=== PATIENT | female | born 1980 | race Caucasian/White ===

== ENCOUNTER 2016-08-08 02:05 | Emergency (ER) | payer MEDICAID ==
--- NOTE | 2016-08-08 19:18 | ER ---
ADMIT: 08/08/2016 RM/LOC: ER [facility] MR#: [id number] [place], [place] [id number] BESTDMITRY HOYTRA Natalia [address] [place] [address] Emergency Room Report SEX: F AGE: 36 : 1980 DATE: 08/08/2016 HISTORY OF PRESENT ILLNESS: The patient is a 36-year-old female, came to the ER with chief complaint of vaginal pain on and off for the last 3 months and also hematuria for the last few days. The patient states she also has been treated for vaginal infection and noticed some improvement. The patient has no primary care doctor. Pain is sharp and is in the pubic area and vaginal area per the patient. PHYSICAL EXAMINATION: GENERAL: The patient was in moderate distress. HEAD AND NECK: Noncontributory. CHEST: Clear bilaterally in auscultation. HEART: Normal S1, S2. ABDOMEN: Mildly tender in the pubic area. GENITOURINARY: In the pelvic exam, the patient has no cervical motion tenderness and no adnexal tenderness, there is no adnexal masses, the vaginal panel was taken, the rest of the physical exam was noncontributory. The patient's vaginal panel was negative for yeast, chlamydia, clue cells, or trichomonads. Urine had 36 wbc and 121 rbc. Pain was controlled, CT of abdomen and pelvis was negative for any acute changes or obvious kidney stones or other abnormalities. The patient was discharged home with a diagnosis of UTI, with a prescription for Keflex and follow up with the primary care doctor as needed. The patient agreed with the plan. Jason Navarrete MD/ merrick JOB #: [id number] CC: Jason Navarrete MD, Attending Physician Shorty Ferro MD, Family Physician
== END 2016-08-08 06:04 | disposition home or self-care (01) ==
LOC: ER 02:05
DX: N39.0 Urinary tract infection, site not specified (principal)